=== PATIENT | male | born 1960 | race African-American/Black ===

== ENCOUNTER 2017-01-27 14:34 | Inpatient (IN) | payer OTHER ==
[~2017-01-27] VITALS: Ht 180.3 cm; Wt 58.1 kg
[2017-01-27] VITALS (20 sets, daily range): BP systolic 92–145; BP diastolic 67–105
[~2017-01-27 14:34] MED LIST: COR3 PO; ETOMIDATE 2MG/ML 10ML VIAL IV ONE; FURO-151 PO; HYDR100T26 PO; LISI2.5T47 PO; STERILE WATER FOR INJECTION 10ML VIAL ONE; VECURONIUM BROMIDE 10 MG/VIAL IV ONE
[2017-01-27] MEDS ORDERED: NITROGLYCERIN OINT 1GM/INCH UDPKT TD STA (15:10)
[2017-01-27 15:40] LABS: HEMATOCRIT. 28.7 % (42.0-52.0); HEMOGLOBIN. 8.8 g/dL (14.0-18.0); MEAN CORPUSCULAR HEMOGLOBIN 31.9 pg (28.0-32.0); MEAN CORPUSCULAR HGB CONC 30.8 g/dL (31.0-37.0); MEAN CORPUSCULAR VOLUME 103.7 fL (80.0-94.0); MEAN PLATELET VOLUME 10.7 fl (7.4-10.4); PLATELET 112 x1000/uL (130-400); RED BLOOD CELL COUNT 2.77 mill/uL (4.7-6.1); RED CELL DISTRIBUTION WIDTH 26.2 % (11.6-14.6); WHITE BLOOD COUNT 7.1 x1000/uL (4.5-11.0)
[2017-01-27 15:43] LABS: DIFFERENTIAL COMMENT 1
[2017-01-27] MEDS ORDERED: CEFTRIAXONE 1 G PREMIX 50 ML IV ONE (15:45)
[2017-01-27] MEDS ORDERED: AZITHROMYCIN 500 MG in DEXT 5% WATER 250 ML IV SCH (15:45)
[2017-01-27] MEDS ORDERED: IPRATROPIUM/ALBUTEROL 0.5-3(2.5)MG/3ML NEB HHN ONE (15:45)
[2017-01-27 15:46] LABS: INR 1.5; PARTIAL THROMBOPLASTIN TIME 26.4 sec (24.0-34.0); PROTHROMBIN TIME 15.7 sec
[2017-01-27 15:56] LABS: ALANINE AMINOTRANSFERASE 16 IU/L (13-61); ALBUMIN 2.5 g/dL (3.4-5.0); ANION GAP 23; CALCIUM 9.3 mg/dL (8.5-10.1); CARBON DIOXIDE 21 mEq/L (21-32); CHLORIDE 104 mEq/L (98-107); INDEX HEMOLYSI 1 (1-3); INDEX ICTERIC 1 (1-4); INDEX LIPEMIC 1 (1-3); TROPONIN I 0.15 ng/mL (0.00-0.04); eGFR 7 mL/min (>60)
[2017-01-27 15:59] LABS: UREA NITROGEN BLOOD 89 mg/dL (7-21)
[2017-01-27 16:00] LABS: LACTIC ACID 6.1 mmol/L (0.4-2.0)
[2017-01-27] MEDS ORDERED: KETOROLAC 30MG/ML VIAL IV ONE (16:00)
[2017-01-27 16:21] LABS: ANISOCYTOSIS 2+; NT PRO B-TYPE NATRIURETIC PEP > 175000 pg/mL (5-125)
[2017-01-27 16:22] LABS: HYPOCHROMASIA 1+
[2017-01-27 16:24] LABS: PLATELET ESTIMATE SLIGHTLY DECREASED
[2017-01-27] MEDS ORDERED: CALCIUM CHLORIDE 1GM/10ML SYR IV ONE (16:45)
[2017-01-27] MEDS ORDERED: SODIUM BICARBONATE 8.4% 1 MEQ/ML 50ML SYR IV ONE ×2 (16:45→17:00)
[2017-01-27] MEDS ORDERED: DEXTROSE 50% WATER 50ML SYRINGE IV ONE ×2 (16:45→17:00)
[2017-01-27] MEDS ORDERED: INSULIN REGULAR (HUMULIN R) 300UNITS/3ML IV ONE (16:45)
[2017-01-27] MEDS ORDERED: VECURONIUM BROMIDE 10 MG/VIAL IV ONE (17:00)
[2017-01-27] MEDS ORDERED: ETOMIDATE 2MG/ML 10ML VIAL IV ONE (17:00)
[2017-01-27] MEDS ORDERED: PROPOFOL 10MG/ML 100ML 100 ML IV SCH (17:00)
[2017-01-27] MEDS ORDERED: SODIUM CHLORIDE 0.9% 250 ML IV ONE (17:15)
[2017-01-27 17:27] LABS: BG BASE EXCESS -8.8 mmol/L (-2.0-2.0); BG CARBOXYHEMOGLOBIN 0.3 % (0.5-1.5); BG DEOXYHEMOGLOBIN 2.1 % (0.0-5.0); BG FRACTION INSPIRED OXYGEN 100; BG HCO3 ACT 15.4 mmol/L (22.0-26.0); BG METHEMOGLOBIN 0.8 % (0.0-1.5); BG OXYGEN SATURATION 97.9 % (92.0-98.5); BG OXYHEMOGLOBIN 96.8 % (94.0-97.0); BG PCO2 26.8 mmHg (35.0-45.0); BG PH 7.377 (7.350-7.450); BG PO2 130.9 mmHg (75.0-100.0); BG SAMPLE SITE RIGHT RADIAL; BG TIDAL VOLUME(mL) 600 mL; BG TOTAL HEMOGLOBIN 7.9 g/dL (12.0-18.0); BG VENT MODE VENT - A/C; BG VENT RATE 16 set
[2017-01-27] MEDS ORDERED: DOPAMINE 400MG PREMIX 250 ML IV ONE (18:00)
[2017-01-27] MEDS ORDERED: LORAZEPAM 2MG/ML CPJ ONE (18:22)
[2017-01-27] MEDS ORDERED: IPRATROPIUM/ALBUTEROL 0.5-3(2.5)MG/3ML NEB INH PRN (20:15)
[2017-01-27] MEDS ORDERED: ONDANSETRON HCL 4MG/2ML VIAL IV PRN (20:15)
[2017-01-27] MEDS ORDERED: GENTAMICIN SULFATE 140 MG in SODIUM CHLORIDE 0.9% 50 ML IV NR (21:00)
[2017-01-27] MEDS ORDERED: PHENYLEPHRINE 20 MG in DEXT 5% WATER 498 ML IV PRN (21:30)
[2017-01-27] MEDS ORDERED: VANCOMYCIN 1250MG in DEXTROSE 5% WATER 250ML IV NR (22:00)
[2017-01-27 22:58] LABS: BG BASE EXCESS -0.1 mmol/L (-2.0-2.0); BG CARBOXYHEMOGLOBIN 0.4 % (0.5-1.5); BG DEOXYHEMOGLOBIN 0.1 % (0.0-5.0); BG FRACTION INSPIRED OXYGEN 100; BG HCO3 ACT 21.5 mmol/L (22.0-26.0); BG METHEMOGLOBIN 0.2 % (0.0-1.5); BG OXYGEN SATURATION 99.9 % (92.0-98.5); BG OXYHEMOGLOBIN 99.3 % (94.0-97.0); BG PH 7.553 (7.350-7.450); BG SAMPLE SITE LEFT RADIAL; BG TIDAL VOLUME(mL) 600 mL; BG VENT MODE VENT - A/C; BG VENT RATE 16 set
[2017-01-28] VITALS (104 sets, daily range): BP systolic 84–124; BP diastolic 43–90
[2017-01-28] MEDS ORDERED: FENTANYL CITRATE/PF 1,000 MCG in SODIUM CHLORIDE 0.9% 80 ML IV PRN (00:30)
[2017-01-28] MEDS ORDERED: CALC667T2 PO (01:14)
[2017-01-28] MEDS ORDERED: ALLO100T PO (01:14)
[2017-01-28] MEDS: PHENYLEPHRINE 40 MG in DEXT 5% WATER 500 ML IV PRN ×2 (01:42→13:52)
[2017-01-28] MEDS: IPRATROPIUM/ALBUTEROL 0.5-3(2.5)MG/3ML NEB INH SCH ×4 (02:36→19:39)
[2017-01-28] MEDS ORDERED: PROPOFOL 10MG/ML 100ML 100 ML IV PRN (05:00)
[2017-01-28 05:23] LABS: HEMATOCRIT. 24.6 % (42.0-52.0); HEMOGLOBIN. 7.8 g/dL (14.0-18.0); MEAN CORPUSCULAR HEMOGLOBIN 32.4 pg (28.0-32.0); MEAN CORPUSCULAR HGB CONC 31.5 g/dL (31.0-37.0); MEAN CORPUSCULAR VOLUME 102.9 fL (80.0-94.0); MEAN PLATELET VOLUME 11.1 fl (7.4-10.4); PLATELET 92 x1000/uL (130-400); RED BLOOD CELL COUNT 2.39 mill/uL (4.7-6.1); RED CELL DISTRIBUTION WIDTH 25.9 % (11.6-14.6); WHITE BLOOD COUNT 10.2 x1000/uL (4.5-11.0)
[2017-01-28 05:36] LABS: BILIRUBIN DIRECT 0.5 mg/dL (0.0-0.2); CHLORIDE 103 mEq/L (98-107); INDEX HEMOLYSI 1 (1-3); INDEX ICTERIC 1 (1-4); INDEX LIPEMIC 1 (1-3)
[2017-01-28 05:38] LABS: DIFFERENTIAL COMMENT 1
[2017-01-28 05:56] LABS: ALANINE AMINOTRANSFERASE 25 IU/L (13-61); ALBUMIN 2.1 g/dL (3.4-5.0); ANION GAP 19; CALCIUM 8.7 mg/dL (8.5-10.1); CARBON DIOXIDE 23 mEq/L (21-32); MAGNESIUM 2.1 mg/dL (1.8-2.4); PHOSPHORUS 5.9 mg/dL (2.5-4.9); TRIGLYCERIDE 231 mg/dL (0-150); TROPONIN I 0.14 ng/mL (0.00-0.04); UREA NITROGEN BLOOD 64 mg/dL (7-21); eGFR 10 mL/min (>60)
[2017-01-28 08:44] LABS: BG BASE EXCESS -1.6 mmol/L (-2.0-2.0); BG CARBOXYHEMOGLOBIN 0.7 % (0.5-1.5); BG FRACTION INSPIRED OXYGEN 40; BG HCO3 ACT 22.3 mmol/L (22.0-26.0); BG METHEMOGLOBIN 0.1 % (0.0-1.5); BG OXYHEMOGLOBIN 97.2 % (94.0-97.0); BG PCO2 34.4 mmHg (35.0-45.0); BG PO2 116.5 mmHg (75.0-100.0); BG SAMPLE SITE RIGHT RADIAL; BG TIDAL VOLUME(mL) 450 mL; BG TOTAL HEMOGLOBIN 9.1 g/dL (12.0-18.0); BG VENT MODE VENT - A/C; BG VENT RATE 16 set
[2017-01-28] MEDS: PANTOPRAZOLE SODIUM 40 MG/VIAL IV SCH (09:13)
[2017-01-28 09:53] LABS: INDEX HEMOLYSI 2 (1-3); INDEX ICTERIC 1 (1-4); INDEX LIPEMIC 1 (1-3); IRON 123 ug/dL (50-175); TOTAL IRON BINDING CAPACITY 175 ug/dL (250-450)
[2017-01-28 12:52] LABS: NUCLEATED RED BLOOD CELLS 3 /100 WBC
[2017-01-28 12:53] LABS: ANISOCYTOSIS 3+; PLATELET ESTIMATE DECREASED
[2017-01-28] MEDS ORDERED: HEPARIN SODIUM 1,000 UNIT/1ML VIAL IV NR (13:00)
[2017-01-28 16:35] LABS: ALBUMIN 2.2 g/dL (3.4-5.0); BILIRUBIN DIRECT 0.4 mg/dL (0.0-0.2)
[2017-01-28] MEDS: MORPHINE SULFATE 2 MG/ML CPJ (NOT FOR IM USE) IV PRN (16:49)
[2017-01-28 17:04] LABS: HEPATITIS B SURFACE ANTIGEN NEGATIVE
[2017-01-28 17:32] LABS: HEPATITIS C VIR.AB 0.25 INDEXVAL (0.00-0.80)
[2017-01-28 17:33] LABS: HEPATITIS B CORE AB IGM NEGATIVE
[2017-01-28 17:34] LABS: HEPATITIS A AB IGM NEGATIVE (NEGATIVE)
[2017-01-28] MEDS ORDERED: EPOETIN ALFA 4000UNITS/ML VIAL SUBCUT SCH (21:00)
[2017-01-29] VITALS (83 sets, daily range): BP systolic 81–123; BP diastolic 54–82
[2017-01-29] MEDS: METOCLOPRAMIDE HCL 10MG/2ML VIAL IV SCH ×5 (00:05→23:59)
[2017-01-29] MEDS: IPRATROPIUM/ALBUTEROL 0.5-3(2.5)MG/3ML NEB INH SCH ×4 (01:49→19:45)
[2017-01-29 05:37] LABS: HEMOGLOBIN. 12.5 g/dL (14.0-18.0); MEAN CORPUSCULAR HEMOGLOBIN 31.7 pg (28.0-32.0); MEAN CORPUSCULAR VOLUME 95.9 fL (80.0-94.0); MEAN PLATELET VOLUME 10.7 fl (7.4-10.4); PLATELET 84 x1000/uL (130-400); RED BLOOD CELL COUNT 3.96 mill/uL (4.7-6.1); RED CELL DISTRIBUTION WIDTH 22.5 % (11.6-14.6); WHITE BLOOD COUNT 10.9 x1000/uL (4.5-11.0)
[2017-01-29 05:39] LABS: DIFFERENTIAL COMMENT 1
[2017-01-29 06:39] LABS: CALCIUM 8.4 mg/dL (8.5-10.1); GENTAMICIN RANDOM 2.3 ug/mL
[2017-01-29 06:51] LABS: THYROID STIMULATING HORMONE 7.4 uIU/mL (0.36-3.74)
[2017-01-29 07:04] LABS: TROPONIN I 0.6 ng/mL (0.00-0.04)
[2017-01-29 07:32] LABS: ANISOCYTOSIS 2+; GIANT PLATELETS 1+; PLATELET ESTIMATE DECREASED
[2017-01-29 07:59] LABS: BG BASE EXCESS -5.4 mmol/L (-2.0-2.0); BG CARBOXYHEMOGLOBIN 0.6 % (0.5-1.5); BG DEOXYHEMOGLOBIN 1.9 % (0.0-5.0); BG FRACTION INSPIRED OXYGEN 40; BG HCO3 ACT 18.3 mmol/L (22.0-26.0); BG METHEMOGLOBIN 0.4 % (0.0-1.5); BG OXYGEN SATURATION 98.1 % (92.0-98.5); BG OXYHEMOGLOBIN 97.1 % (94.0-97.0); BG PCO2 30.3 mmHg (35.0-45.0); BG PH 7.398 (7.350-7.450); BG PO2 114.2 mmHg (75.0-100.0); BG SAMPLE SITE RIGHT RADIAL; BG TIDAL VOLUME(mL) 500 mL; BG TOTAL HEMOGLOBIN 12.7 g/dL (12.0-18.0); BG VENT MODE VENT - A/C; BG VENT RATE 12 set
[2017-01-29] MEDS ORDERED: SIMETHICONE 40 MG/0.6 ML 30ML PO SCH (08:50)
[2017-01-29] MEDS: PANTOPRAZOLE SODIUM 40 MG/VIAL IV SCH (10:03)
[2017-01-29 10:57] LABS: INR 1.2; PROTHROMBIN TIME 12.5 sec
[2017-01-29 12:40] LABS: PROTEIN BODY FLUID 2.2 gm/dL
[2017-01-29 13:29] LABS: BODY FLUID WBC 186 /cu mm (0-200)
[2017-01-29 13:30] LABS: BODY FLUID MONOCYTES 50 %
[2017-01-29] MEDS: SIMETHICONE 80MG TABLET CHEW PO SCH ×3 (13:45→20:55)
[2017-01-29] MEDS: CEFAZOLIN 2,000 MG in DEXT 5% WATER 100 ML IV SCH (17:01)
[2017-01-30] VITALS (47 sets, daily range): BP systolic 75–129; BP diastolic 52–83
[2017-01-30] MEDS: IPRATROPIUM/ALBUTEROL 0.5-3(2.5)MG/3ML NEB INH SCH ×4 (01:51→20:30)
[2017-01-30] MEDS: METOCLOPRAMIDE HCL 10MG/2ML VIAL IV SCH ×3 (05:06→17:32)
[2017-01-30] MEDS: MORPHINE SULFATE 2 MG/ML CPJ (NOT FOR IM USE) IV PRN ×2 (05:06→11:12)
[2017-01-30 05:26] LABS: HEMATOCRIT. 35.7 % (42.0-52.0); HEMOGLOBIN. 11.8 g/dL (14.0-18.0); MEAN CORPUSCULAR HEMOGLOBIN 31.8 pg (28.0-32.0); MEAN CORPUSCULAR HGB CONC 33.1 g/dL (31.0-37.0); MEAN CORPUSCULAR VOLUME 96.2 fL (80.0-94.0); MEAN PLATELET VOLUME 9.7 fl (7.4-10.4); PLATELET 77 x1000/uL (130-400); RED BLOOD CELL COUNT 3.71 mill/uL (4.7-6.1); RED CELL DISTRIBUTION WIDTH 21.6 % (11.6-14.6); WHITE BLOOD COUNT 8.1 x1000/uL (4.5-11.0)
[2017-01-30 05:45] LABS: DIFFERENTIAL COMMENT 1
[2017-01-30 05:55] LABS: CALCIUM 8.5 mg/dL (8.5-10.1); PHOSPHORUS 7.5 mg/dL (2.5-4.9)
[2017-01-30 06:12] LABS: CREATINE KINASE MB FRACTION 1.3 ng/mL (0.5-3.6)
[2017-01-30 06:53] LABS: TROPONIN I 0.64 ng/mL (0.00-0.04)
[2017-01-30 07:00] LABS: ANISOCYTOSIS 2+; PLATELET ESTIMATE DECREASED
[2017-01-30] MEDS ORDERED: HEPARIN SODIUM 1,000 UNIT/1ML VIAL IV NR (10:15)
[2017-01-30] MEDS ORDERED: SODIUM BICARBONATE 8.4% 1 MEQ/ML 50ML SYR IV ONE (10:55)
[2017-01-30] MEDS ORDERED: LIDOCAINE HCL 1% 20ML VIAL (Pyxis) INJ ONE (10:55)
[2017-01-30] MEDS: PANTOPRAZOLE SODIUM 40 MG/VIAL IV SCH (11:11)
[2017-01-30] MEDS: SIMETHICONE 80MG TABLET CHEW PO SCH ×4 (11:12→21:28)
[2017-01-30 14:51] LABS: BG BASE EXCESS -3.6 mmol/L (-2.0-2.0); BG CARBOXYHEMOGLOBIN 0.5 % (0.5-1.5); BG DEOXYHEMOGLOBIN 1.4 % (0.0-5.0); BG FRACTION INSPIRED OXYGEN 40; BG HCO3 ACT 21.2 mmol/L (22.0-26.0); BG METHEMOGLOBIN 0.3 % (0.0-1.5); BG OXYGEN SATURATION 98.6 % (92.0-98.5); BG OXYHEMOGLOBIN 97.8 % (94.0-97.0); BG PCO2 37.3 mmHg (35.0-45.0); BG PH 7.372 (7.350-7.450); BG PRESSURE SUPPORT 6; BG SAMPLE SITE LEFT BRACHIAL; BG TOTAL HEMOGLOBIN 13.1 g/dL (12.0-18.0); BG VENT MODE VENT - CPAP
[2017-01-30] MEDS: CEFAZOLIN 2,000 MG in DEXT 5% WATER 100 ML IV SCH (15:26)
[2017-01-31] VITALS (26 sets, daily range): BP systolic 89–123; BP diastolic 63–80
[2017-01-31] MEDS: METOCLOPRAMIDE HCL 10MG/2ML VIAL IV SCH ×5 (01:11→23:54)
[2017-01-31] MEDS: IPRATROPIUM/ALBUTEROL 0.5-3(2.5)MG/3ML NEB INH SCH ×4 (01:48→20:13)
[2017-01-31 05:44] LABS: HEMATOCRIT. 33.9 % (42.0-52.0); HEMOGLOBIN. 11.3 g/dL (14.0-18.0); MEAN CORPUSCULAR HEMOGLOBIN 32.2 pg (28.0-32.0); MEAN CORPUSCULAR HGB CONC 33.3 g/dL (31.0-37.0); MEAN CORPUSCULAR VOLUME 96.6 fL (80.0-94.0); MEAN PLATELET VOLUME 10.5 fl (7.4-10.4); PLATELET 65 x1000/uL (130-400); RED CELL DISTRIBUTION WIDTH 21.8 % (11.6-14.6); WHITE BLOOD COUNT 6.6 x1000/uL (4.5-11.0)
[2017-01-31 05:46] LABS: DIFFERENTIAL COMMENT 1
[2017-01-31 06:16] LABS: TROPONIN I 0.43 ng/mL (0.00-0.04)
[2017-01-31] MEDS: PANTOPRAZOLE SODIUM 40 MG/VIAL IV SCH (08:40)
[2017-01-31] MEDS: SIMETHICONE 80MG TABLET CHEW PO SCH ×4 (08:40→21:18)
[2017-01-31 08:51] LABS: ANISOCYTOSIS 2+; PLATELET ESTIMATE MARKEDLY DECREASED
[2017-01-31] MEDS ORDERED: DIPHENHYDRAMINE 25MG CAPSULE PO PRN (11:00)
[2017-01-31 16:19] LABS: ALBUMIN 1.9 g/dL (3.4-5.0); BILIRUBIN DIRECT 0.2 mg/dL (0.0-0.2)
[2017-01-31] MEDS: CEFAZOLIN 2,000 MG in DEXT 5% WATER 100 ML IV SCH (18:05)
[2017-02-01] VITALS (15 sets, daily range): BP systolic 77–127; BP diastolic 55–93
[2017-02-01] MEDS: IPRATROPIUM/ALBUTEROL 0.5-3(2.5)MG/3ML NEB INH SCH ×4 (01:06→20:30)
[2017-02-01] MEDS: METOCLOPRAMIDE HCL 10MG/2ML VIAL IV SCH ×3 (05:58→17:59)
[2017-02-01 07:04] LABS: HEMATOCRIT. 34.8 % (42.0-52.0); HEMOGLOBIN. 10.9 g/dL (14.0-18.0); MEAN CORPUSCULAR HEMOGLOBIN 31.8 pg (28.0-32.0); MEAN CORPUSCULAR HGB CONC 31.3 g/dL (31.0-37.0); MEAN CORPUSCULAR VOLUME 101.5 fL (80.0-94.0); MEAN PLATELET VOLUME 9.7 fl (7.4-10.4); RED BLOOD CELL COUNT 3.43 mill/uL (4.7-6.1); RED CELL DISTRIBUTION WIDTH 22.9 % (11.6-14.6); WHITE BLOOD COUNT 6.8 x1000/uL (4.5-11.0)
[2017-02-01 07:10] LABS: CALCIUM 7.8 mg/dL (8.5-10.1)
[2017-02-01 07:27] LABS: DIFFERENTIAL COMMENT 1
[2017-02-01 07:34] LABS: PLATELET 78 x1000/uL (130-400)
[2017-02-01] MEDS: PANTOPRAZOLE SODIUM 40 MG/VIAL IV SCH (08:09)
[2017-02-01] MEDS: FOLIC ACID/VITAMIN B COMP W-C TABLET PO SCH (08:09)
[2017-02-01] MEDS: SIMETHICONE 80MG TABLET CHEW PO SCH ×4 (08:09→21:58)
[2017-02-01 10:22] LABS: ANISOCYTOSIS 3+; PLATELET ESTIMATE DECREASED
[2017-02-01 12:30] LABS: INDEX HEMOLYSI 1 (1-3)
[2017-02-01 13:09] LABS: FOLIC ACID (FOLATE) SERUM > 20.00 ng/mL (>5.38); VITAMIN B12 SERUM > 2000 pg/mL (211-911)
[2017-02-01] MEDS: CEFAZOLIN 2,000 MG in DEXT 5% WATER 100 ML IV SCH (17:16)
[2017-02-01] MEDS ORDERED: EPOETIN ALFA 4000UNITS/ML VIAL SUBCUT SCH (21:00)
[2017-02-02] VITALS (14 sets, daily range): BP systolic 100–144; BP diastolic 31–100
[2017-02-02] MEDS: METOCLOPRAMIDE HCL 10MG/2ML VIAL IV SCH ×4 (00:29→17:08)
[2017-02-02] MEDS: IPRATROPIUM/ALBUTEROL 0.5-3(2.5)MG/3ML NEB INH SCH ×4 (00:33→20:03)
[2017-02-02 07:08] LABS: HEMOGLOBIN. 11.5 g/dL (14.0-18.0); MEAN CORPUSCULAR HEMOGLOBIN 31.8 pg (28.0-32.0); MEAN CORPUSCULAR HGB CONC 31.9 g/dL (31.0-37.0); MEAN CORPUSCULAR VOLUME 99.4 fL (80.0-94.0); MEAN PLATELET VOLUME 9.3 fl (7.4-10.4); PLATELET 71 x1000/uL (130-400); RED BLOOD CELL COUNT 3.62 mill/uL (4.7-6.1); RED CELL DISTRIBUTION WIDTH 22.6 % (11.6-14.6); WHITE BLOOD COUNT 6.8 x1000/uL (4.5-11.0)
[2017-02-02 07:28] LABS: ADD RBC MORPHOLOGY YES; DIFFERENTIAL COMMENT 1
[2017-02-02 07:55] LABS: CALCIUM 9.1 mg/dL (8.5-10.1)
[2017-02-02] MEDS: PANTOPRAZOLE SODIUM 40 MG/VIAL IV SCH (08:03)
[2017-02-02] MEDS: FOLIC ACID/VITAMIN B COMP W-C TABLET PO SCH (08:03)
[2017-02-02] MEDS: SIMETHICONE 80MG TABLET CHEW PO SCH ×4 (08:03→21:39)
[2017-02-02 08:30] LABS: PLATELET ESTIMATE SLIGHTLY DECREASED
[2017-02-02] MEDS: MICONAZOLE NITRATE 2% OINT 71GM TOP SCH ×2 (11:09→21:39)
[2017-02-02] MEDS: CEFAZOLIN 2,000 MG in DEXT 5% WATER 100 ML IV SCH (15:24)
[2017-02-03] VITALS (23 sets, daily range): BP systolic 101–159; BP diastolic 48–104
[2017-02-03] MEDS: METOCLOPRAMIDE HCL 10MG/2ML VIAL IV SCH ×4 (00:57→17:12)
[2017-02-03] MEDS: IPRATROPIUM/ALBUTEROL 0.5-3(2.5)MG/3ML NEB INH SCH ×4 (01:53→20:43)
[2017-02-03 07:16] LABS: HEMATOCRIT. 33.4 % (42.0-52.0); HEMOGLOBIN. 10.9 g/dL (14.0-18.0); MEAN CORPUSCULAR HEMOGLOBIN 32.1 pg (28.0-32.0); MEAN CORPUSCULAR HGB CONC 32.6 g/dL (31.0-37.0); MEAN CORPUSCULAR VOLUME 98.2 fL (80.0-94.0); MEAN PLATELET VOLUME 10.1 fl (7.4-10.4); PLATELET 83 x1000/uL (130-400); RED CELL DISTRIBUTION WIDTH 22.7 % (11.6-14.6); WHITE BLOOD COUNT 7.3 x1000/uL (4.5-11.0)
[2017-02-03 07:41] LABS: DIFFERENTIAL COMMENT 1
[2017-02-03 08:14] LABS: MAGNESIUM 2.2 mg/dL (1.8-2.4)
[2017-02-03] MEDS: MICONAZOLE NITRATE 2% OINT 71GM TOP SCH ×2 (09:05→20:48)
[2017-02-03] MEDS: SIMETHICONE 80MG TABLET CHEW PO SCH ×4 (09:05→20:46)
[2017-02-03] MEDS: PANTOPRAZOLE SODIUM 40 MG/VIAL IV SCH (09:05)
[2017-02-03] MEDS: FOLIC ACID/VITAMIN B COMP W-C TABLET PO SCH (09:05)
[2017-02-03] MEDS: CARVEDILOL 3.125 MG TABLET PO SCH ×2 (11:00→20:47)
[2017-02-03 12:45] LABS: ANISOCYTOSIS 2+; NUCLEATED RED BLOOD CELLS 1 /100 WBC; PLATELET ESTIMATE DECREASED
[2017-02-03] MEDS: CEFAZOLIN 2,000 MG in DEXT 5% WATER 100 ML IV SCH (17:07)
== END 2017-02-03 22:22 | disposition home or self-care (01) | DRG 871 ==
LOC: ER 14:42 → CVICU 17:51 → SUPCPDRO 18:43 → 3WST 01-31 17:44
PROVIDERS: ADMIT Family Medicine Adult Medicine; ATTEND Family Medicine Adult Medicine
PROC: 5A1945Z Respiratory Ventilation, 24-96 Consecutive Hours (ICD-10-PCS; principal; 2017-01-27)
PROC: 0BH18EZ Insertion of Endotracheal Airway into Trachea, Via Natural or Artificial Opening Endoscopic (ICD-10-PCS; 2017-01-27)
PROC: 5A1D60Z (ICD-10-PCS; 2017-01-27)
PROC: 30233N1 Transfusion of Nonautologous Red Blood Cells into Peripheral Vein, Percutaneous Approach (ICD-10-PCS; 2017-01-28)
PROC: 06HN33Z Insertion of Infusion Device into Left Femoral Vein, Percutaneous Approach (ICD-10-PCS; 2017-01-28)
PROC: 0W993ZX Drainage of Right Pleural Cavity, Percutaneous Approach, Diagnostic (ICD-10-PCS; 2017-01-29)
PROC: 0W9B3ZX Drainage of Left Pleural Cavity, Percutaneous Approach, Diagnostic (ICD-10-PCS; 2017-01-30)
DX: A41.01 Sepsis due to Methicillin susceptible Staphylococcus aureus (principal); G93.40 Encephalopathy, unspecified; I50.43 Acute on chronic combined systolic (congestive) and diastolic (congestive) heart failure; J96.00 Acute respiratory failure, unspecified whether with hypoxia or hypercapnia; K72.00 Acute and subacute hepatic failure without coma; N18.6 End stage renal disease; J18.9 Pneumonia, unspecified organism; R65.21 Severe sepsis with septic shock; E44.1 Mild protein-calorie malnutrition; I13.2 Hypertensive heart and chronic kidney disease with heart failure and with stage 5 chronic kidney disease, or end stage renal disease; J44.0 Chronic obstructive pulmonary disease with (acute) lower respiratory infection; I42.9 Cardiomyopathy, unspecified; D68.9 Coagulation defect, unspecified; E87.1 Hypo-osmolality and hyponatremia; E87.2 Acidosis; I31.3 Pericardial effusion (noninflammatory); K56.7 Ileus, unspecified; N25.81 Secondary hyperparathyroidism of renal origin; K92.2 Gastrointestinal hemorrhage, unspecified; Z68.1 Body mass index [BMI] 19.9 or less, adult; I69.354 Hemiplegia and hemiparesis following cerebral infarction affecting left non-dominant side; D53.9 Nutritional anemia, unspecified; D63.8 Anemia in other chronic diseases classified elsewhere; D69.6 Thrombocytopenia, unspecified; E03.9 Hypothyroidism, unspecified; E16.2 Hypoglycemia, unspecified; E78.00 Pure hypercholesterolemia, unspecified; E87.5 Hyperkalemia; F17.210 Nicotine dependence, cigarettes, uncomplicated; I25.10 Atherosclerotic heart disease of native coronary artery without angina pectoris; I27.2 Other secondary pulmonary hypertension; I34.0 Nonrheumatic mitral (valve) insufficiency; M10.00 Idiopathic gout, unspecified site; R74.0 Nonspecific elevation of levels of transaminase and lactic acid dehydrogenase [LDH]; Z99.2 Dependence on renal dialysis; Z99.81 Dependence on supplemental oxygen; Z79.899 Other long term (current) drug therapy
CPT/HCPCS: 31500; 32555; 36415; 36556; 36600; 43753; 71010; 74000; 76604; 76700; 80048; 80053; 80076; 80170; 80202; 82040; 82248; 82270; 82375; 82550; 82553; 82607; 82746; 82805; 82945; 83540; 83550; 83605; 83615; 83735; 83880; 84100; 84132; 84157; 84443; 84478; 84480; 84484; 85025; 85379; 85610; 85730; 86705; 86709; 86803; 86850; 86870; 86900; 86920; 87040; 87070; 87205; 87340; 88108; 88312; 89050; 93005; 93306; 93970; 94002; 94003; 94640; 96365; 96366; 96375; 96376; 97116; 97163; 97530; 99291; A4216; C9113; G0482; J0456; J0690; J0696; J0885; J1265; J1580; J1644; J1815; J1885; J2060; J2270; J2370; J2704; J2765; J3370; J3490; J7030; J7040; J7050; J7060; J7620; P9016; A4315

== ENCOUNTER 2017-02-14 19:46 | Inpatient (IN) | payer OTHER, MEDICAID ==
[~2017-02-14] VITALS: Ht 180.3 cm; Wt 59.0 kg
[~2017-02-14 19:46] MED LIST changes: +ALLO100T PO; +CALC667T2 PO; -ETOMIDATE 2MG/ML 10ML VIAL IV ONE; -STERILE WATER FOR INJECTION 10ML VIAL ONE; -VECURONIUM BROMIDE 10 MG/VIAL IV ONE
[2017-02-14 20:33] LABS: HEMATOCRIT. 31.8 % (42.0-52.0); MEAN CORPUSCULAR HEMOGLOBIN 33.2 pg (28.0-32.0); MEAN CORPUSCULAR VOLUME 105.6 fL (80.0-94.0); MEAN PLATELET VOLUME 10.2 fl (7.4-10.4); PLATELET 90 x1000/uL (130-400); RED BLOOD CELL COUNT 3.01 mill/uL (4.7-6.1); RED CELL DISTRIBUTION WIDTH 24.3 % (11.6-14.6)
[2017-02-14 20:39] LABS: CHLORIDE 102 mEq/L (98-107); INR 1.2; PROTHROMBIN TIME 12.3 sec
[2017-02-14 20:47] LABS: CARBON DIOXIDE 30 mEq/L (21-32); TROPONIN I 0.06 ng/mL (0.00-0.04)
[2017-02-14 20:49] LABS: PLATELET ESTIMATE SLIGHTLY DECREASED
[2017-02-14] MEDS ORDERED: ASPIRIN 81MG TABLET PO ONE (21:30)
[2017-02-14] MEDS ORDERED: DOCUSATE SODIUM 100MG CAPSULE PO PRN (21:30)
[2017-02-14] MEDS ORDERED: NA PHOS,M-B/NA PHOS,DI-BA ENEMA 118ML PR PRN (21:30)
[2017-02-14] MEDS ORDERED: HYDROMORPHONE HCL/PF 2MG/ML CPJ IV PRN (21:30)
[2017-02-14] MEDS ORDERED: LORAZEPAM 2MG/ML CPJ IV PRN (21:30)
[2017-02-14] MEDS ORDERED: MAGNESIUM/ALUMINUM HYDROXIDE/SIMETHICONE 30ML UDC PO PRN (21:30)
[2017-02-14] MEDS ORDERED: DIPHENHYDRAMINE 50MG/ML VIAL IV PRN (21:30)
[2017-02-14] MEDS ORDERED: ACETAMINOPHEN 325MG TABLET PO PRN (21:30)
[2017-02-14] MEDS ORDERED: GUAIFENESIN 200MG/10ML SUGAR FREE UDC PO PRN (21:30)
[2017-02-14] MEDS ORDERED: CLONIDINE 0.1MG TABLET PO PRN (21:30)
[2017-02-14] MEDS ORDERED: HYDROCODONE/ACETAMINOPHEN 5/325MG TABLET PO PRN (21:30)
[2017-02-14 23:03] VITALS: BP 96/71
[2017-02-15] VITALS: BP 96/71
[2017-02-15 04:00] VITALS: BP 120/66
[2017-02-15 06:27] LABS: BASOPHILS % 0.3 % (0.0-2.0); HEMATOCRIT. 32.7 % (42.0-52.0); HEMOGLOBIN. 10.1 g/dL (14.0-18.0); LYMPHOCYTES % 8.3 % (20.0-50.0); MEAN CORPUSCULAR HEMOGLOBIN 32.9 pg (28.0-32.0); MEAN CORPUSCULAR VOLUME 106.8 fL (80.0-94.0); MEAN PLATELET VOLUME 10.4 fl (7.4-10.4); MONOCYTES % 10.3 % (2.0-8.0); NEUTROPHILS % 78.1 % (40.0-76.0); PLATELET 100 x1000/uL (130-400); RED BLOOD CELL COUNT 3.07 mill/uL (4.7-6.1); RED CELL DISTRIBUTION WIDTH 24.8 % (11.6-14.6)
[2017-02-15 06:52] LABS: CHLORIDE 103 mEq/L (98-107)
[2017-02-15 07:10] LABS: CARBON DIOXIDE 30 mEq/L (21-32); HDL CHOLESTEROL 24 mg/dL (40-59); LDL CHOLESTEROL 52 mg/dL (5-100); T4 FREE 0.92 ng/dL (0.76-1.46)
[2017-02-15 08:00] VITALS: BP 92/72
[2017-02-15] MEDS ORDERED: SODIUM POLYSTYRENE SULFONATE 15 G/60 ML BOT PO NR (08:21)
[2017-02-15] MEDS ORDERED: ENOXAPARIN 30MG/0.3ML SYR SUBCUT SCH (09:00)
[2017-02-15] MEDS: ASPIRIN 81MG EC TABLET PO SCH (09:06)
[2017-02-15 12:00] VITALS: BP 97/72
[2017-02-15] MEDS ORDERED: ALBUMIN HUMAN 12.5GM/50ML (25%) IV PRN (12:00)
[2017-02-15 16:00] VITALS: BP 105/86
[2017-02-15] MEDS: NYSTATIN POWDER 15GM TOP SCH (17:11)
[2017-02-15] MEDS: ONDANSETRON HCL 4MG/2ML VIAL IV PRN (18:12)
[2017-02-15 20:00] VITALS: BP 98/78
[2017-02-16] VITALS: BP 102/79
[2017-02-16] MEDS: IPRATROPIUM/ALBUTEROL 0.5-3(2.5)MG/3ML NEB INH PRN ×2 (00:57→19:31)
[2017-02-16 04:00] VITALS: BP 98/78
[2017-02-16] MEDS: NYSTATIN POWDER 15GM TOP SCH ×2 (06:11→17:08)
[2017-02-16 06:27] LABS: BASOPHILS % 0.6 % (0.0-2.0); EOSINOPHILS % 5.5 % (0.0-5.0); HEMATOCRIT. 35.7 % (42.0-52.0); HEMOGLOBIN. 10.9 g/dL (14.0-18.0); LYMPHOCYTES % 12.9 % (20.0-50.0); MEAN CORPUSCULAR HEMOGLOBIN 33.3 pg (28.0-32.0); MEAN CORPUSCULAR VOLUME 108.8 fL (80.0-94.0); MEAN PLATELET VOLUME 10.4 fl (7.4-10.4); MONOCYTES % 13.2 % (2.0-8.0); NEUTROPHILS % 67.8 % (40.0-76.0); PLATELET 90 x1000/uL (130-400); RED BLOOD CELL COUNT 3.28 mill/uL (4.7-6.1); RED CELL DISTRIBUTION WIDTH 25.2 % (11.6-14.6)
[2017-02-16 07:02] LABS: PHOSPHORUS 5.3 mg/dL (2.5-4.9)
[2017-02-16 07:36] VITALS: BP 105/87
[2017-02-16] MEDS: ASPIRIN 81MG EC TABLET PO SCH (09:52)
[2017-02-16 12:00] VITALS: BP 108/81
[2017-02-16] MEDS: FOLIC ACID/VITAMIN B COMP W-C TABLET PO SCH (13:22)
[2017-02-16 16:00] VITALS: BP 111/78
[2017-02-16 20:00] VITALS: BP 112/89
[2017-02-17] VITALS: BP 110/90
[2017-02-17 04:00] VITALS: BP 107/89
[2017-02-17 06:07] LABS: HEMATOCRIT 34.2 % (42.0-52.0); HEMOGLOBIN 10.6 g/dL (14.0-18.0); MEAN CORPUSCULAR HEMOGLOBIN 33.2 pg (28.0-32.0); MEAN CORPUSCULAR VOLUME 106.9 fL (80.0-94.0); PLATELET 106 x1000/uL (130-400); RED CELL DISTRIBUTION WIDTH 24.5 % (11.6-14.6)
[2017-02-17] MEDS: NYSTATIN POWDER 15GM TOP SCH (07:58)
[2017-02-17 08:00] VITALS: BP 117/59
[2017-02-17] MEDS: FOLIC ACID/VITAMIN B COMP W-C TABLET PO SCH (08:39)
[2017-02-17] MEDS: ASPIRIN 81MG EC TABLET PO SCH (08:39)
[2017-02-17] MEDS ORDERED: HEPARIN SODIUM 1,000 UNIT/1ML VIAL IV NR (09:15)
[2017-02-17] MEDS: ONDANSETRON HCL 4MG/2ML VIAL IV PRN (11:16)
[2017-02-17 11:45] VITALS: BP 104/85
[2017-02-17 12:00] VITALS: BP 104/85
[2017-02-17] MEDS ORDERED: HEPARIN SODIUM 1,000 UNIT/1ML VIAL IV ONE (16:00)
== END 2017-02-17 14:22 | disposition home or self-care (01) | DRG 291 ==
LOC: ER 19:46 → 8WST 21:20
PROVIDERS: ADMIT Internal Medicine; ATTEND Internal Medicine
PROC: 5A1D60Z (ICD-10-PCS; principal; 2017-02-17)
DX: I13.2 Hypertensive heart and chronic kidney disease with heart failure and with stage 5 chronic kidney disease, or end stage renal disease (principal); G93.41 Metabolic encephalopathy; N18.6 End stage renal disease; I50.23 Acute on chronic systolic (congestive) heart failure; E46 Unspecified protein-calorie malnutrition; Z68.1 Body mass index [BMI] 19.9 or less, adult; R07.89 Other chest pain; D63.8 Anemia in other chronic diseases classified elsewhere; I42.9 Cardiomyopathy, unspecified; E78.00 Pure hypercholesterolemia, unspecified; I95.9 Hypotension, unspecified; E78.5 Hyperlipidemia, unspecified; E86.9 Volume depletion, unspecified; E87.5 Hyperkalemia; I27.2 Other secondary pulmonary hypertension; Z99.2 Dependence on renal dialysis; Z79.899 Other long term (current) drug therapy
CPT/HCPCS: 36415; 71010; 80048; 80053; 80061; 83540; 83550; 84100; 84439; 84443; 84484; 85025; 85027; 85610; 93005; 99285; J1644; J2405; J7030; J7620; P9047